=== PATIENT | female | born 1965 | race Native Hawaiian/Other Pacific Islander ===

== ENCOUNTER 2018-02-23 15:15 | Emergency (ER) | payer OTHER ==
[~2018-02-23] VITALS: Ht 167.6 cm; Wt 123.4 kg
== END 2018-02-23 17:00 | disposition home or self-care (01) ==
LOC: ED 15:15
DX: S00.93XA Contusion of unspecified part of head, initial encounter (principal); S20.222A Contusion of left back wall of thorax, initial encounter; S20.221A Contusion of right back wall of thorax, initial encounter; S30.0XXA Contusion of lower back and pelvis, initial encounter; W19.XXXA Unspecified fall, initial encounter; Y92.098 Other place in other non-institutional residence as the place of occurrence of the external cause
CPT/HCPCS: 99283

== ENCOUNTER 2020-06-21 10:48 | Outpatient (CLI) | payer OTHER ==
[2020-06-21 11:14] LABS: PLATELET COUNT 364 K/uL (152-353)
[2020-06-21 11:21] LABS: POTASSIUM 3.4 mmol/L (3.6-5.2)
== END 2020-06-21 19:04 | disposition home or self-care (01) ==
LOC: LABW 10:48
DX: D72.829 Elevated white blood cell count, unspecified (principal); M06.09 Rheumatoid arthritis without rheumatoid factor, multiple sites; M31.5 Giant cell arteritis with polymyalgia rheumatica; M62.81 Muscle weakness (generalized); M79.7 Fibromyalgia; R70.0 Elevated erythrocyte sedimentation rate; R79.82 Elevated C-reactive protein (CRP); Z79.899 Other long term (current) drug therapy
CPT/HCPCS: 36415; 80053; 85027; 85651; 86140

== ENCOUNTER 2020-07-20 07:48 | Outpatient (CLI) | payer OTHER ==
[2020-07-20 08:24] LABS: POTASSIUM 4.7 mmol/L (3.6-5.2)
[2020-07-20 08:33] LABS: PLATELET COUNT 329 K/uL (152-353)
== END 2020-07-20 21:01 | disposition home or self-care (01) ==
LOC: LABW 07:48
PROVIDERS: Internal Medicine
DX: D72.829 Elevated white blood cell count, unspecified (principal); M06.09 Rheumatoid arthritis without rheumatoid factor, multiple sites; M31.5 Giant cell arteritis with polymyalgia rheumatica; M62.81 Muscle weakness (generalized); M79.7 Fibromyalgia; R70.0 Elevated erythrocyte sedimentation rate; R79.82 Elevated C-reactive protein (CRP); Z79.899 Other long term (current) drug therapy
CPT/HCPCS: 36415; 80053; 85027; 85651; 86140

== ENCOUNTER 2020-08-30 07:58 | Outpatient (CLI) | payer OTHER ==
[2020-08-30 08:32] LABS: POTASSIUM 4.1 mmol/L (3.6-5.2)
[2020-08-30 10:08] LABS: PLATELET COUNT 345 K/uL (152-353)
== END 2020-08-30 19:02 | disposition home or self-care (01) ==
LOC: LABW 07:58
DX: D72.829 Elevated white blood cell count, unspecified (principal); M06.09 Rheumatoid arthritis without rheumatoid factor, multiple sites; M31.5 Giant cell arteritis with polymyalgia rheumatica; M62.81 Muscle weakness (generalized); M79.7 Fibromyalgia; R70.0 Elevated erythrocyte sedimentation rate; R79.82 Elevated C-reactive protein (CRP); Z79.899 Other long term (current) drug therapy
CPT/HCPCS: 36415; 80053; 85027; 85651; 86140

== ENCOUNTER 2020-09-09 10:30 | Outpatient (CLI) | payer OTHER ==
[2020-09-09 11:16] LABS: POTASSIUM 3.9 mmol/L (3.6-5.2)
== END 2020-09-09 19:28 | disposition home or self-care (01) ==
LOC: LABW 10:30
PROVIDERS: Physician Assistant
DX: D72.829 Elevated white blood cell count, unspecified (principal); M06.09 Rheumatoid arthritis without rheumatoid factor, multiple sites; M31.5 Giant cell arteritis with polymyalgia rheumatica; M62.81 Muscle weakness (generalized); M79.7 Fibromyalgia; R70.0 Elevated erythrocyte sedimentation rate; R79.82 Elevated C-reactive protein (CRP); Z79.899 Other long term (current) drug therapy
CPT/HCPCS: 36415; 80053

== ENCOUNTER 2020-09-25 08:10 | Outpatient (CLI) | payer OTHER ==
[2020-09-25 09:17] LABS: POTASSIUM 4.3 mmol/L (3.6-5.2)
== END 2020-09-25 20:24 | disposition home or self-care (01) ==
LOC: LABW 08:10
PROVIDERS: Physician Assistant
DX: M06.09 Rheumatoid arthritis without rheumatoid factor, multiple sites (principal); M31.5 Giant cell arteritis with polymyalgia rheumatica; R94.5 Abnormal results of liver function studies; Z11.1 Encounter for screening for respiratory tuberculosis; Z11.59 Encounter for screening for other viral diseases; Z79.899 Other long term (current) drug therapy
CPT/HCPCS: 36415; 80053; 86480; 86704; 86706; 86803; 87340

== ENCOUNTER 2020-11-01 14:58 | Outpatient (CLI) | payer OTHER ==
[2020-11-01 15:41] LABS: PLATELET COUNT 321 K/uL (152-353)
[2020-11-01 15:50] LABS: POTASSIUM 3.7 mmol/L (3.6-5.2)
== END 2020-11-01 20:03 | disposition home or self-care (01) ==
LOC: LABW 14:58
PROVIDERS: ATTEND Internal Medicine
DX: D72.829 Elevated white blood cell count, unspecified (principal); M06.09 Rheumatoid arthritis without rheumatoid factor, multiple sites; M31.5 Giant cell arteritis with polymyalgia rheumatica; M62.81 Muscle weakness (generalized); M79.7 Fibromyalgia; R70.0 Elevated erythrocyte sedimentation rate; R79.82 Elevated C-reactive protein (CRP); Z79.899 Other long term (current) drug therapy
CPT/HCPCS: 36415; 80053; 85007; 85027; 85651; 86140

== ENCOUNTER 2020-11-20 13:09 | Outpatient (CLI) | payer OTHER ==
[2020-11-20 13:42] LABS: PLATELET COUNT 264 K/uL (152-353)
[2020-11-20 13:50] LABS: POTASSIUM 4.5 mmol/L (3.6-5.2)
== END 2020-11-20 19:39 | disposition home or self-care (01) ==
LOC: LABW 13:09
PROVIDERS: ATTEND Physician Assistant
DX: D72.829 Elevated white blood cell count, unspecified (principal); M06.09 Rheumatoid arthritis without rheumatoid factor, multiple sites; M31.5 Giant cell arteritis with polymyalgia rheumatica; M62.81 Muscle weakness (generalized); M79.7 Fibromyalgia; R70.0 Elevated erythrocyte sedimentation rate; R79.82 Elevated C-reactive protein (CRP); Z79.899 Other long term (current) drug therapy
CPT/HCPCS: 36415; 80053; 85027; 85652; 86140

== ENCOUNTER 2020-12-06 22:30 | Inpatient (IN) | payer OTHER ==
[~2020-12-06] VITALS: Ht 167.6 cm; Wt 115.9 kg
[2020-12-06 22:30] VITALS: BP 97/56; TEMP 100.4
[2020-12-06 23:00] VITALS: BP 100/68
[2020-12-06 23:06] LABS: POTASSIUM 3.1 mmol/L (3.6-5.2); SODIUM 136 mmol/L (136-145)
[2020-12-06 23:09] LABS: PLATELET COUNT 259 K/uL (152-353)
[2020-12-06 23:15] LABS: PARTIAL THROMBOPLASTIN TIME 21.9 SECONDS (24.5-33.6)
[2020-12-06 23:30] VITALS: BP 113/68
[2020-12-07] VITALS (19 sets, daily range): BP systolic 96–119; BP diastolic 50–75; TEMP 97.8–99.5; Ht 167.6 cm; Wt 115.9 kg
[2020-12-07] MEDS ORDERED: LANTUS SOL100 UNIT/M SC (08:30)
[2020-12-07] MEDS ORDERED: VALSARTAN80 MG PO (08:31)
[2020-12-07] MEDS ORDERED: PRED20TA27 PO (08:32)
[2020-12-07] MEDS ORDERED: VALA500T2 PO (08:34)
[2020-12-07] MEDS ORDERED: PRAMIPEXOLE1.5 MG PO (08:37)
[2020-12-07] MEDS ORDERED: LYRICA100 MG PO (08:38)
[2020-12-07] MEDS ORDERED: LEVO0.0529 PO (08:40)
[2020-12-07] MEDS ORDERED: AMBIEN5 MG PO (08:41)
[2020-12-07] MEDS ORDERED: WELLBUTRIN150 MG PO (08:42)
[2020-12-07] MEDS ORDERED: DULOXETINE HYDR60 MG PO (08:42)
[2020-12-07] MEDS ORDERED: CALCI21 PO (08:44)
[2020-12-07] MEDS ORDERED: VITAMIN D PO (08:44)
[2020-12-07] MEDS ORDERED: MULTIVITAMI1 PO (08:45)
[2020-12-07] MEDS ORDERED: ALPR0.5T24 PO (08:46)
[2020-12-07] MEDS ORDERED: METF100038 PO (08:53)
[2020-12-07] MEDS ORDERED: CLON1TAB18 PO (08:59)
[2020-12-07] MEDS ORDERED: PANTOPRAZOLE 40MG TA PO (09:00)
[2020-12-07] MEDS ORDERED: CARAFATE1 GM PO ×2 (09:02→09:03)
[2020-12-07] MEDS ORDERED: KP FOLIC ACID1 MG PO (09:04)
[2020-12-07] MEDS ORDERED: ZOFRAN8 MG PO (09:05)
[2020-12-07] MEDS ORDERED: LEVSIN0.125 MG PO (09:07)
[2020-12-07] MEDS ORDERED: OZEMPIC2 MG/1.5 M SC (09:09)
[2020-12-07] MEDS ORDERED: ACTEMRA80 MG/4 ML IV (15:59)
[2020-12-07] MEDS ORDERED: ZITHROMAX500 MG PO (16:00)
[2020-12-07] MEDS ORDERED: FURO20TA67 PO (16:01)
[2020-12-08 00:04] VITALS: BP 110/67; TEMP 99.9
[2020-12-08 03:41] VITALS: BP 115/78; TEMP 98.9
[2020-12-08 08:00] VITALS: BP 110/63; TEMP 98.6
[2020-12-08] MEDS ORDERED: METO-837 PO (10:40)
[2020-12-08] MEDS ORDERED: FLUC200T PO (10:42)
[2020-12-08] MEDS ORDERED: PREDNISONE20 MG PO (10:42)
[2020-12-08 12:00] VITALS: BP 118/67; TEMP 99.5
[2020-12-08 12:31] LABS: PLATELET COUNT 225 K/uL (152-353)
[2020-12-08 13:18] LABS: POTASSIUM 3.8 mmol/L (3.6-5.2)
[2020-12-08 16:00] VITALS: BP 94/45; TEMP 99.5
== END 2020-12-08 19:24 | disposition short-term general hospital (02) | DRG 177 ==
LOC: ED 22:41 → ICU 23:59 → MED/SURG 23:59 → ICU 12-07 → MED/SURG 12-07 16:24 → UNDODEPER 12-08 02:15 → MED/SURG 12-08 19:24
PROVIDERS: ADMIT Hospitalist; ATTEND Internal Medicine
DX: U07.1 COVID-19 (principal); J18.8 Other pneumonia, unspecified organism; E03.8 Other specified hypothyroidism; E11.9 Type 2 diabetes mellitus without complications; M06.8A Other specified rheumatoid arthritis, other specified site; K21.9 Gastro-esophageal reflux disease without esophagitis; F41.8 Other specified anxiety disorders; M79.7 Fibromyalgia
CPT/HCPCS: 36600; 80053; 82550; 82805; 82948; 83605; 83880; 84484; 85007; 85027; 85610; 85730; 87040; 87635; 93005; 94660; 94667; 94668; 94760; 96365; 96366; 96367; 96372; 96375; 99285; J0456; J1100; J1650; J1815; J1956; J2405; U0003